=== PATIENT | female | born 1955 | race African-American/Black ===

== ENCOUNTER 2017-08-24 15:04 | Emergency (ER) | payer OTHER ==
[2017-08-24 16:16] LABS: Bilirubin,Urine NEG (Negative); Blood,Urine NEG (Negative); Ketones,Urine NEG (Negative); Leukocyte Esterase,Urine NEG (Negative); Nitrite,Urine NEG (Negative); Protein,Urine <15 mg/dL mg/dL (Negative); Urobilinogen,Urine < 2.0 mg/dL (<2.0); WBC,Urine < 1.0 /HPF (0.0-6.0)
[2017-08-24 19:19] LABS: Basophils % (Auto) 0.3 % (0.0-1.8); Eosinophils % (Auto) 2.1 % (0.0-4.3); Hematocrit 44.5 % (30.3-42.9); Hemoglobin 14.6 gm/dl (10.1-14.3); Mean Corpuscular HGB Conc 33 % (30-34); Mean Corpuscular Hemoglobin 28 pg (28-32); Mean Corpuscular Volume 85 fl (79-97); Platelet Count 112 K/mm3 (140-440); Red Blood Count 5.22 M/mm3 (3.65-5.03); Red Cell Distribution Width 14.8 % (13.2-15.2); White Blood Count 5.9 K/mm3 (4.5-11.0)
[2017-08-24 19:27] VITALS: BP 126/72
[2017-08-24 19:28] LABS: Alanine Aminotransferase 37 units/L (7-56); Albumin/Globulin Ratio 1.5 %; Alkaline Phosphatase 78 units/L (35-129); Anion Gap 21 mmol/L; BUN/Creatinine Ratio 28; Blood Urea Nitrogen 11 mg/dL (7-17); Carbon Dioxide 26 mmol/L (22-30); Chloride 101.3 mmol/L (98-107); Glucose 90 mg/dL (65-100); Potassium 4.5 mmol/L (3.6-5.0); Sodium 144 mmol/L (137-145); Total Protein 8.3 g/dL (6.3-8.2)
--- NOTE | 2017-08-24 20:33 | Emergency Department Report ---
ED Female HPI - General Chief complaint: Urogenital-Female Stated complaint: FOREIGN BODY VAGINAL AREA Time Seen by Provider: 08/24/17 17:43 Source: patient Mode of arrival: Ambulatory Limitations: No Limitations - History of Present Illness Initial comments: Patient with 2 weeks of vaginal protrusion that is reducible by patient. She had a normal PAP with her doctor 3 months ago. She has had 3 kids vaginally. Upon further questioning, she had the same problem several years ago but it resolved. No fevers. Also reports history of hemorrhoids which have been reducible. MD Complaint: other (Patient with protruding vagina.) -: Sudden, week(s) (2) Location: perineum Radiation: non-radiating Severity: moderate Severity scale (0 -10): 5 Quality: other (abnormal bulging sensation. Pain with hemorrhoids.) Consistency: intermittent Improves with: movement, other (self-reduction) Worsens with: movement Are you Now?: No - Related Data Home Medications Medication Instructions Recorded Confirmed Last Taken AtorvaSTATin 20 mg PO DAILY 02/11/16 02/11/16 02/04/16 Bisoprolol Fumarate 1 tab PO DAILY 02/11/16 02/11/16 02/04/16 Clopidogrel 75 mg PO DAILY 02/11/16 02/11/16 02/04/16 Metformin HCl 1,000 mg PO BID 02/11/16 02/11/16 02/04/16 Previous Rx's Medication Instructions Recorded Last Taken Type Hydrocort/Pramoxine [Proctofoam-Hc] 10 gm ID DAILY #3 can 08/24/17 Unknown Rx Allergies Allergy/AdvReac Type Severity Reaction Status Date / Time Fish Containing Products Allergy Mild Itching Verified 02/11/16 08:02 fish oil Allergy Itching Verified 02/11/16 08:02 ED Review of Systems ROS: Stated complaint: FOREIGN BODY VAGINAL AREA Other details as noted in HPI Constitutional: denies: chills, fever Eyes: denies: eye pain, eye discharge, vision change ENT: denies: ear pain, throat pain Respiratory: denies: cough, shortness of breath, wheezing Cardiovascular: denies: chest pain, palpitations Endocrine: no symptoms reported Gastrointestinal: denies: abdominal pain, nausea, diarrhea Genitourinary: other (bulge from vagina.). denies: urgency, dysuria, discharge Musculoskeletal: denies: back pain, joint swelling, arthralgia Skin: denies: rash, lesions Neurological: denies: headache, weakness, paresthesias Psychiatric: denies: anxiety, depression Hematological/Lymphatic: denies: easy bleeding, easy bruising ED Past Medical Hx - Past Medical History Previous Medical History?: Yes Hx Hypertension: Yes Hx Diabetes: Yes Additional medical history: Hepatitis B, High cholesterol, Hemorrhoids - Surgical History Past Surgical History?: Yes Additional Surgical History: eye lid surgery, Cataract surgeyr - Social History Smoking Status: Never Smoker Substance Use Type: Prescribed - Medications Home Medications: Home Medications Medication Instructions Recorded Confirmed Last Taken Type AtorvaSTATin 20 mg PO DAILY 02/11/16 02/11/16 02/04/16 History Bisoprolol Fumarate 1 tab PO DAILY 02/11/16 02/11/16 02/04/16 History Clopidogrel 75 mg PO DAILY 02/11/16 02/11/16 02/04/16 History Metformin HCl 1,000 mg PO BID 02/11/16 02/11/16 02/04/16 History Hydrocort/Pramoxine [Proctofoam-Hc] 10 gm ID DAILY #3 can 08/24/17 Unknown Rx ED Physical Exam - General Limitations: No Limitations General appearance: alert, in no apparent distress - Head Head exam: Present: atraumatic, normocephalic - Eye Eye exam: Present: normal appearance - ENT ENT exam: Present: mucous membranes moist - Neck Neck exam: Present: normal inspection - Respiratory Respiratory exam: Present: normal lung sounds bilaterally. Absent: respiratory distress - Cardiovascular Cardiovascular Exam: Present: regular rate, normal rhythm. Absent: systolic murmur, diastolic murmur, rubs, gallop - GI/Abdominal GI/Abdominal exam: Present: soft, normal bowel sounds - Rectal Rectal exam: Present: normal inspection, normal rectal tone, hemorrhoids (small and none that required reduction.) - External exam: Present: normal external exam, lesions (escoriation between rectum and posterior introitus. no blisters.) Speculum exam: Present: normal speculum exam, other (No lacerations, no discharge, did have protruding vagina but fully reducible.) - Extremities Exam Extremities exam: Present: normal inspection - Back Exam Back exam: Present: normal inspection - Neurological Exam Neurological exam: Present: alert, oriented X3 - Psychiatric Psychiatric exam: Present: normal affect, normal mood - Skin Skin exam: Present: warm, dry, intact, normal color. Absent: rash ED Course Vital Signs 08/24/17 08/24/17 08/24/17 15:20 16:45 16:49 Temperature 98 F 98.3 F Pulse Rate 111 H 68 Respiratory 20 18 Rate Blood Pressure 146/88 148/88 O2 Sat by Pulse 96 97 Oximetry 08/24/17 08/24/17 08/24/17 17:00 17:16 17:30 Temperature Pulse Rate Respiratory Rate Blood Pressure 140/85 140/85 140/85 O2 Sat by Pulse 97 97 Oximetry 08/24/17 08/24/17 08/24/17 17:46 18:00 18:20 Temperature Pulse Rate Respiratory Rate Blood Pressure 140/85 140/85 143/82 O2 Sat by Pulse 98 97 98 Oximetry 08/24/17 08/24/17 08/24/17 18:30 18:46 19:00 Temperature Pulse Rate Respiratory Rate Blood Pressure 143/82 143/82 143/82 O2 Sat by Pulse 97 98 97 Oximetry 08/24/17 19:16 Temperature Pulse Rate Respiratory Rate Blood Pressure 126/72 O2 Sat by Pulse 97 Oximetry ED Medical Decision Making - Lab Data Result diagrams: 08/24/17 18:37 08/24/17 18:37 unremarkable labs. - Medical Decision Making Patient with vaginal prolapse, likely uterus. Also has some old hemorrhoids. She will need follow up with [facility] and will go back to hers. Reassurance. Daughter acted as lining setter for [place]. She will do fiber and hydration for hemorrhoids. Will give protofoam. for hemorrhoids. Critical care attestation.: If time is entered above; I have spent that time in minutes in the direct care of this critically ill patient, excluding procedure time. ED Disposition Clinical Impression: Vaginal prolapse, Hemorrhoids, external Disposition: DC-01 TO HOME OR SELFCARE Is pt being admited?: No Does the pt Need Aspirin: No Condition: Good Instructions: Hemorrhoids (ED) Additional Instructions: May use protofoam for hemorrhoid symptoms. Follow up with [facility] for vaginal prolapse. Prescriptions: Hydrocort/Pramoxine [Proctofoam-Hc] 10 gm ID DAILY #3 can Referrals: [facility] [Provider Group] - 3-5 Days Time of Disposition: 20:44
== END 2017-08-24 20:57 | disposition home or self-care (01) ==
LOC: ED 15:04
DX: N81.10 Cystocele, unspecified (principal); K64.4 Residual hemorrhoidal skin tags; I10 Essential (primary) hypertension; E11.9 Type 2 diabetes mellitus without complications; E78.00 Pure hypercholesterolemia, unspecified; Z86.19 Personal history of other infectious and parasitic diseases; Z91.013 Allergy to seafood
CPT/HCPCS: 36415; 80053; 81001; 85025; 99283

== ENCOUNTER 2018-04-29 16:20 | Emergency (ER) | payer OTHER ==
--- NOTE | 2018-04-29 21:52 | Emergency Department Report ---
ED Extremity Problem HPI - General Chief complaint: Extremity Problem,Nontraumatic Stated complaint: RIGHT KNEE PAIN Time Seen by Provider: 04/29/18 21:47 Source: patient Mode of arrival: Wheelchair Limitations: No Limitations - History of Present Illness MD Complaint: extremity pain, joint paint -: Gradual Location: right, knee History of Same: No -: Yes arthralgia Radiation: none Severity scale (0 -10): 6 Quality: aching, sharp Consistency: constant Improves with: nothing Worsens with: nothing Associated Symptoms: denies other symptoms - Related Data Home Medications Medication Instructions Recorded Confirmed Last Taken AtorvaSTATin 20 mg PO DAILY 02/11/16 02/11/16 02/04/16 Bisoprolol Fumarate 1 tab PO DAILY 02/11/16 02/11/16 02/04/16 Clopidogrel 75 mg PO DAILY 02/11/16 02/11/16 02/04/16 Metformin HCl 1,000 mg PO BID 02/11/16 02/11/16 02/04/16 Previous Rx's Medication Instructions Recorded Last Taken Type Hydrocort/Pramoxine [Proctofoam-Hc] 10 gm [place] DAILY #3 can 08/24/17 Unknown Rx Meloxicam 7.5 mg PO Q8H PRN #20 tablet 04/30/18 Unknown Rx Telmisartan 40 mg PO DAILY #30 tablet 04/30/18 Unknown Rx Allergies Allergy/AdvReac Type Severity Reaction Status Date / Time Fish Containing Products Allergy Mild Itching Verified 02/11/16 08:02 fish oil Allergy Itching Verified 02/11/16 08:02 ED Review of Systems ROS: Stated complaint: RIGHT KNEE PAIN Other details as noted in HPI Comment: All other systems reviewed and negative Constitutional: denies: chills, fever Eyes: denies: eye pain, eye discharge ENT: denies: ear pain Respiratory: denies: cough, shortness of breath Cardiovascular: denies: chest pain, palpitations, dyspnea on exertion Endocrine: no symptoms reported Gastrointestinal: denies: abdominal pain, nausea, vomiting, diarrhea Genitourinary: denies: urgency, dysuria Musculoskeletal: arthralgia. denies: back pain, joint swelling Skin: denies: rash, lesions Neurological: denies: headache, weakness, numbness, paresthesias Psychiatric: denies: anxiety, depression Hematological/Lymphatic: denies: easy bleeding, easy bruising ED Past Medical Hx - Past Medical History Hx Hypertension: Yes Hx Diabetes: Yes Additional medical history: Hepatitis B, High cholesterol, Hemorrhoids - Surgical History Past Surgical History?: Yes Additional Surgical History: eye lid surgery, Cataract surgeyr - Social History Smoking Status: Never Smoker Substance Use Type: None - Medications Home Medications: Home Medications Medication Instructions Recorded Confirmed Last Taken Type AtorvaSTATin 20 mg PO DAILY 02/11/16 02/11/16 02/04/16 History Bisoprolol Fumarate 1 tab PO DAILY 02/11/16 02/11/16 02/04/16 History Clopidogrel 75 mg PO DAILY 02/11/16 02/11/16 02/04/16 History Metformin HCl 1,000 mg PO BID 02/11/16 02/11/16 02/04/16 History Hydrocort/Pramoxine [Proctofoam-Hc] 10 gm [place] DAILY #3 can 08/24/17 Unknown Rx Meloxicam 7.5 mg PO Q8H PRN #20 tablet 04/30/18 Unknown Rx Telmisartan 40 mg PO DAILY #30 tablet 04/30/18 Unknown Rx ED Physical Exam - General Limitations: No Limitations General appearance: alert, in no apparent distress - Head Head exam: Present: atraumatic, normocephalic, normal inspection - Eye Eye exam: Present: normal appearance, PERRL, EOMI Pupils: Present: normal accommodation - ENT ENT exam: Present: normal exam, normal orophraynx, mucous membranes moist - Neck Neck exam: Present: normal inspection, full ROM. Absent: tenderness - Respiratory Respiratory exam: Present: normal lung sounds bilaterally. Absent: respiratory distress, wheezes, rales, rhonchi, stridor - Cardiovascular Cardiovascular Exam: Present: regular rate, normal rhythm, normal heart sounds - GI/Abdominal GI/Abdominal exam: Present: soft, normal bowel sounds. Absent: distended, tenderness, guarding, rebound, rigid - Extremities Exam Extremities exam: Present: normal inspection, full ROM, tenderness (Right Knee ) , normal capillary refill. Absent: pedal edema, joint swelling, calf tenderness - Back Exam Back exam: Present: normal inspection, full ROM. Absent: tenderness - Neurological Exam Neurological exam: Present: alert, oriented X3, CN II-XII intact - Psychiatric Psychiatric exam: Present: normal affect, normal mood - Skin Skin exam: Present: warm, dry, intact, normal color. Absent: rash ED Course Vital Signs 04/29/18 04/29/18 04/29/18 17:01 21:59 23:48 Temperature 98.3 F 97.9 F Pulse Rate 94 H 90 77 Respiratory 16 18 Rate Blood Pressure 164/81 156/81 Blood Pressure 160/72 [160/72] O2 Sat by Pulse 96 99 Oximetry ED Medical Decision Making - Lab Data Result diagrams: 04/29/18 22:24 04/29/18 22:24 - Radiology Data Radiology results: report reviewed, image reviewed - Medical Decision Making Right Knee pain Critical care attestation.: If time is entered above; I have spent that time in minutes in the direct care of this critically ill patient, excluding procedure time. ED Disposition Clinical Impression: Osteoarthritis Qualifiers: Osteoarthritis location: knee Osteoarthritis type: primary Laterality: right Qualified Code(s): M17.11 - Unilateral primary osteoarthritis, right knee Hypertension Qualifiers: Hypertension type: essential hypertension Qualified Code(s): I10 - Essential ( primary) hypertension Disposition: TO HOME OR SELFCARE Is pt being admited?: No Does the pt Need Aspirin: No Condition: Stable Instructions: Osteoarthritis (ED), Hypertension (ED) Additional Instructions: Please follow up with your primary doctor on Wednesday morning. Wrist and to the emergency room if condition worsens. Prescriptions: Meloxicam 7.5 mg PO Q8H PRN #20 tablet PRN Reason: pain Telmisartan 40 mg PO DAILY #30 tablet Referrals: PRIMARY CARE, [Primary Care Provider] - 3-5 Days Time of Disposition: 00:18
[2018-04-29] MEDS ORDERED: SUBLIMAZE IV ONE (22:14)
[2018-04-29] MEDS ORDERED: ZOFRAN IV ONE (22:14)
[2018-04-29] MEDS ORDERED: CATAPRES PO ONE (22:16)
[2018-04-29 23:17] LABS: Basophils % (Auto) 0.3 % (0.0-1.8); Eosinophils # (Auto) 0.2 K/mm3 (0.0-0.4); Eosinophils % (Auto) 2.7 % (0.0-4.3); Hematocrit 40.6 % (30.3-42.9); Lymphocytes # (Auto) 3.5 K/mm3 (1.2-5.4); Lymphocytes % (Auto) 47.3 % (13.4-35.0); Mean Corpuscular HGB Conc 34 % (30-34); Mean Corpuscular Hemoglobin 28 pg (28-32); Mean Corpuscular Volume 82 fl (79-97); Monocytes # (Auto) 0.5 K/mm3 (0.0-0.8); Monocytes % (Auto) 6.6 % (0.0-7.3); Platelet Count 112 K/mm3 (140-440); Red Blood Count 4.96 M/mm3 (3.65-5.03); Red Cell Distribution Width 15.2 % (13.2-15.2)
[2018-04-29 23:26] LABS: INR 1.05 (0.87-1.13); Partial Thromboplastin Time 30.9 Sec. (24.2-36.6)
--- NOTE | 2018-04-29 23:29 | XRay Report ---
FINAL REPORT PROCEDURE: XR KNEE 3V RT TECHNIQUE: RIGHT knee radiographs, AP, lateral and sunrise views. CPT 98262 HISTORY: Lower Extremity Injury COMPARISON: No prior studies are available for comparison. FINDINGS: Fracture (s) and/or Dislocation(s): None . Alignment: Normal . Joint space(s): Normal . Soft tissues: Normal . Bone mineralization: Mild degree osteophyte formation is noted.. Foreign bodies: None . IMPRESSION: Mild degree osteoarthritis..
[2018-04-29 23:31] LABS: Alanine Aminotransferase 27 units/L (7-56); Albumin 4.8 g/dL (3.9-5); BUN/Creatinine Ratio 43; Blood Urea Nitrogen 17 mg/dL (7-17); Calcium 9.8 mg/dL (8.4-10.2); Hemolysis Index 5
[2018-04-29 23:37] LABS: Erythrocyte Sedimentation Rate 7 mm/Hr (0-20)
[2018-04-30 00:32] LABS: Bacteria,Urine 2+ /HPF (Negative); Bilirubin,Urine NEG (Negative); Blood,Urine NEG (Negative); Color,Urine Amber (Yellow); Mucus,Urine 3+ /HPF; Protein,Urine <15 mg/dL mg/dL (Negative); Urobilinogen,Urine < 2.0 mg/dL (<2.0)
[2018-04-30 00:35] LABS: WBC,Urine > 182.0 /HPF (0.0-6.0)
[2018-04-30 01:23] VITALS: BP 122/64
--- NOTE | 2018-05-04 17:45 | Vascular Lab Report ---
Right Lower Extremity Venous Duplex Study: Reason for Exam: Pain and swelling of the right lower extremity. Comments on the Right: All veins visualized are freely compressible without evidence of internal echogenicity. Flow is spontaneous and phasic throughout. No evidence of acute or chronic thrombus is seen in any of the vessels visualized. A soft tissue change in the right knee area is consistent with a Lang's cyst. Comments on the Left: A limited duplex study was done of the proximal veins of the left lower extremity. All veins visualized are freely compressible without evidence of internal echogenicity. Flow is spontaneous and phasic throughout. No evidence of acute or chronic thrombus is seen in any of the vessels visualized. Impression: No evidence of acute or chronic deep venous thrombosis in the right lower extremity. A soft tissue change in the right knee area is consistent with a Lang's cyst.
== END 2018-04-30 01:23 | disposition home or self-care (01) ==
LOC: ED 16:20
DX: M17.11 Unilateral primary osteoarthritis, right knee (principal); I10 Essential (primary) hypertension; E11.9 Type 2 diabetes mellitus without complications; E78.00 Pure hypercholesterolemia, unspecified; Z91.013 Allergy to seafood
CPT/HCPCS: 36415; 73562; 80053; 81001; 85025; 85610; 85652; 85730; 86140; 93971; 96374; 96375; 99285; J2405; J3010

== ENCOUNTER 2019-05-14 00:20 | Observation (INO) | payer OTHER ==
[2019-05-14 00:58] LABS: Basophils % (Auto) 0.1 % (0.0-1.8); Eosinophils # (Auto) 0.1 K/mm3 (0.0-0.4); Eosinophils % (Auto) 2.1 % (0.0-4.3); Hematocrit 41.8 % (30.3-42.9); Lymphocytes # (Auto) 3.3 K/mm3 (1.2-5.4); Lymphocytes % (Auto) 50.5 % (13.4-35.0); Mean Corpuscular HGB Conc 34 % (30-34); Mean Corpuscular Volume 85 fl (79-97); Monocytes # (Auto) 0.5 K/mm3 (0.0-0.8); Monocytes % (Auto) 7.5 % (0.0-7.3); Platelet Count 105 K/mm3 (140-440); Red Blood Count 4.94 M/mm3 (3.65-5.03); Red Cell Distribution Width 14.4 % (13.2-15.2)
[2019-05-14 01:20] LABS: BUN/Creatinine Ratio 30; Blood Urea Nitrogen 15 mg/dL (7-17); Calcium 9.7 mg/dL (8.4-10.2); Hemolysis Index 14
--- NOTE | 2019-05-14 01:57 | XRay Report ---
CHEST 1 VIEW 05/14/2019 1:26 AM INDICATION / CLINICAL INFORMATION: Chest Pain. COMPARISON: None available. FINDINGS: SUPPORT DEVICES: None. HEART / MEDIASTINUM: No significant abnormality. LUNGS / PLEURA: No significant pulmonary or pleural abnormality. No pneumothorax. ADDITIONAL FINDINGS: Mild scoliosis of lumbar spine with convexity towards right centered at L1 IMPRESSION: 1. No acute findings. Signer Name: Patrick Oquendo MD Signed: 05/14/2019 1:52 AM Workstation Name: [employer]
[2019-05-14] MEDS ORDERED: ASPIRIN PO ONE (02:31)
[2019-05-14] MEDS ORDERED: NITROSTAT SL PRN (02:31)
--- NOTE | 2019-05-14 03:26 | Emergency Department Report ---
ED Chest Pain HPI - General Chief Complaint: Chest Pain Stated Complaint: CHEST PAIN/FACIAL TINGLING Time Seen by Provider: 05/14/19 02:24 Source: patient Mode of arrival: Ambulatory Limitations: No Limitations - History of Present Illness Initial Comments: Patient is a 63-year-old [place] female with past medical history of high blood pressure diabetes and hyperlipidemia who is presenting with left-sided chest pain. Patient states that there are also some some nausea with 2 episodes of vomiting. Patient states is a heavy sensation that is worse with exertion but is not left for the past 2-3 days. Constant pain also feels as though her heart is beating much harder than normal. Patient states there is some radiation to the neck and jaw. Patient denies shortness of breath diaphoresis. Patient's has not seen a equipment maintenance engineer in 2-3 years. Severity scale (0 -10): 5 - Related Data Home Medications Medication Instructions Recorded Confirmed Last Taken AtorvaSTATin 20 mg PO DAILY 02/11/16 02/11/16 02/04/16 Bisoprolol Fumarate 1 tab PO DAILY 02/11/16 02/11/16 02/04/16 Clopidogrel 75 mg PO DAILY 02/11/16 02/11/16 02/04/16 Metformin HCl 1,000 mg PO BID 02/11/16 02/11/16 02/04/16 Previous Rx's Medication Instructions Recorded Last Taken Type Hydrocort/Pramoxine [Proctofoam-Hc] 10 gm [place] DAILY #3 can 08/24/17 Unknown Rx Meloxicam 7.5 mg PO Q8H PRN #20 tablet 04/30/18 Unknown Rx Telmisartan 40 mg PO DAILY #30 tablet 04/30/18 Unknown Rx Allergies Allergy/AdvReac Type Severity Reaction Status Date / Time No Known Allergies Allergy Unverified 05/14/19 00:35 Heart Score - HEART Score History: Moderately suspicious EKG: Normal Age: 45-65 Risk factors: > 3 risk factors or hx of atherosclerotic disease Troponin: < normal limit HEART Score: 4 ED Review of Systems ROS: Stated complaint: CHEST PAIN/FACIAL TINGLING Other details as noted in HPI Comment: All other systems reviewed and negative ED Past Medical Hx - Past Medical History Previous Medical History?: Yes Hx Hypertension: Yes Hx Diabetes: Yes Hx Liver Disease: Yes (Hepatitis B) Additional medical history: Hepatitis B, High cholesterol, Hemorrhoids - Surgical History Past Surgical History?: Yes Additional Surgical History: eye lid surgery, Cataract surgeyr - Social History Smoking Status: Never Smoker Substance Use Type: None - Medications Home Medications: Home Medications Medication Instructions Recorded Confirmed Last Taken Type AtorvaSTATin 20 mg PO DAILY 02/11/16 02/11/16 02/04/16 History Bisoprolol Fumarate 1 tab PO DAILY 02/11/16 02/11/16 02/04/16 History Clopidogrel 75 mg PO DAILY 02/11/16 02/11/16 02/04/16 History Metformin HCl 1,000 mg PO BID 02/11/16 02/11/16 02/04/16 History Hydrocort/Pramoxine [Proctofoam-Hc] 10 gm [place] DAILY #3 can 08/24/17 Unknown Rx Meloxicam 7.5 mg PO Q8H PRN #20 tablet 04/30/18 Unknown Rx Telmisartan 40 mg PO DAILY #30 tablet 04/30/18 Unknown Rx ED Physical Exam - General Limitations: No Limitations General appearance: alert, in no apparent distress - Head Head exam: Present: atraumatic, normocephalic - Eye Eye exam: Present: normal appearance - ENT ENT exam: Present: mucous membranes moist - Neck Neck exam: Present: normal inspection - Respiratory Respiratory exam: Present: normal lung sounds bilaterally. Absent: respiratory distress, wheezes, rales, rhonchi - Cardiovascular Cardiovascular Exam: Present: regular rate, normal rhythm, normal heart sounds. Absent: systolic murmur, diastolic murmur, rubs, gallop - GI/Abdominal GI/Abdominal exam: Present: soft, normal bowel sounds. Absent: distended, tenderness, guarding, rebound - Extremities Exam Extremities exam: Present: normal inspection - Back Exam Back exam: Present: normal inspection - Neurological Exam Neurological exam: Present: alert, oriented X3 - Psychiatric Psychiatric exam: Present: normal affect, normal mood - Skin Skin exam: Present: warm, dry, intact, normal color. Absent: rash ED Course Vital Signs 05/14/19 05/14/19 00:37 02:30 Temperature 98.2 F 98 F Pulse Rate 102 H 92 H Respiratory 20 14 Rate Blood Pressure 143/87 Blood Pressure 162/81 [Right] O2 Sat by Pulse 97 98 Oximetry LAURENCE score - Laurence Score Age > 65: (0) No Aspirin use within the Past 7 Days: (0) No 3 or more CAD Risk Factors: (1) Yes 2 or more Angina events in past 24 hrs: (1) Yes Known CAD with more than 50% Stenosis: (0) No Elevated Cardiac Markers: (0) No ST Deviation Greater than 0.5mm: (0) No LAURENCE Score: 2 ED Medical Decision Making - Lab Data Result diagrams: 05/14/19 00:43 05/14/19 00:43 Lab Results 05/14/19 05/14/19 Range/Units 00:43 00:43 WBC 6.5 (4.5-11.0) K/mm3 RBC 4.94 (3.65-5.03) M/mm3 Hgb 14.0 (10.1-14.3) gm/dl Hct 41.8 (30.3-42.9) % MCV 85 (79-97) fl MCH 28 (28-32) pg MCHC 34 (30-34) % RDW 14.4 (13.2-15.2) % Plt Count 105 L (140-440) K/mm3 Lymph % (Auto) 50.5 H (13.4-35.0) % [place] % (Auto) 7.5 H (0.0-7.3) % Eos % (Auto) 2.1 (0.0-4.3) % Baso % (Auto) 0.1 (0.0-1.8) % Lymph # 3.3 (1.2-5.4) K/mm3 [place] # 0.5 (0.0-0.8) K/mm3 Eos # 0.1 (0.0-0.4) K/mm3 Baso # 0.0 (0.0-0.1) K/mm3 Seg Neutrophils % 39.8 L (40.0-70.0) % Seg Neutrophils # 2.6 (1.8-7.7) K/mm3 Sodium 140 (137-145) mmol/L Potassium 3.8 (3.6-5.0) mmol/L Chloride 100.9 (98-107) mmol/L Carbon Dioxide 25 (22-30) mmol/L Anion Gap 18 mmol/L BUN 15 (7-17) mg/dL Creatinine 0.5 L (0.7-1.2) mg/dL Estimated GFR > 60 ml/min BUN/Creatinine Ratio 30 % Glucose 114 H (65-100) mg/dL Calcium 9.7 (8.4-10.2) mg/dL Troponin T < 0.010 (0.00-0.029) ng/mL - EKG Data -: EKG Interpreted by Me EKG shows normal: sinus rhythm, axis, intervals, QRS complexes, ST-T waves Rate: normal - EKG Data Interpretation: normal EKG - Radiology Data Radiology results: report reviewed (chest x-ray is within normal limits) - Medical Decision Making The patient is a 63-year-old [place] female who with chest discomfort. Patient has a hard score of 4 and doesn't make criteria for observation. Patient be admitted at this time. Critical Care Time: Yes Critical care attestation.: If time is entered above; I have spent that time in minutes in the direct care of this critically ill patient, excluding procedure time. ED Disposition Clinical Impression: Chest pain Qualifiers: Chest pain type: unspecified Qualified Code(s): R07.9 - Chest pain, unspecified Disposition: DC-01 TO HOME OR SELFCARE Is pt being admited?: Yes Does the pt Need Aspirin: No Condition: Stable Instructions: Chest Pain (ED) Time of Disposition: 03:26
[2019-05-14] MEDS ORDERED: TYLENOL PO PRN (03:47)
[2019-05-14] MEDS ORDERED: MORPHINE IV PRN (03:47)
[2019-05-14] MEDS ORDERED: D50W (25GM) Syringe IV PRN (03:47)
[2019-05-14] MEDS ORDERED: SODIUM CHLORIDE FLUSH SYRINGE 10 ML IV PRN ×2 (03:47)
[2019-05-14] MEDS ORDERED: ZOFRAN IV PRN (03:47)
[2019-05-14] MEDS ORDERED: PERCOCET 5/325 PO PRN (03:47)
[2019-05-14] MEDS ORDERED: APRESOLINE IV PRN (03:56)
--- NOTE | 2019-05-14 04:04 | History and Physical Report ---
History of Present Illness Date of examination: 05/14/19 Date of admission: 05/14/2019 Chief complaint: chest pain History of present illness: 63-year-old [place] speaking patient female with history of hypertension, DM 2, HLD, hep B, hemorrhoids who presents [facility] with c/o of left sided chest pain with radiation to neck. Pt's family is present at bedside and she has requested that they translate. Pt states that around 6pm yesterday she started having chest pain with radiation to neck accompanied by nausea and emesis x2. She denies diaphoresis. She describes her pain as pressure and rates it 7/10. She also states that she feels like her heart is beating faster/ harder than usual. According to pt's son approximately 4-5 years ago pt c/o of fast heart be at and was referred to per diem rn. She had cardiac work-up and was told that the results were normal. She has not been back to the per diem rn since. Pt goes to the [facility] in [place] for all her primary care needs. Denies: dyspnea, diaphoresis, cough, fever, chills, or recent sick contacts Past History Past Medical History: diabetes, hypertension, hyperlipidemia, other (hemorrhoids, hepatitis B) Past Surgical History: Other (eye lid surgery, Cataract surgery) Social history: lives with family. denies: smoking, alcohol abuse Family history: no significant family history Medications and Allergies Allergies Allergy/AdvReac Type Severity Reaction Status Date / Time No Known Allergies Allergy Unverified 05/14/19 00:35 Home Medications Medication Instructions Recorded Confirmed Last Taken Type AtorvaSTATin 20 mg PO DAILY 02/11/16 02/11/16 02/04/16 History Bisoprolol Fumarate 1 tab PO DAILY 02/11/16 02/11/16 02/04/16 History Clopidogrel 75 mg PO DAILY 02/11/16 02/11/16 02/04/16 History Metformin HCl 1,000 mg PO BID 02/11/16 02/11/16 02/04/16 History Hydrocort/Pramoxine [Proctofoam-Hc] 10 gm NV DAILY #3 can 08/24/17 Unknown Rx Meloxicam 7.5 mg PO Q8H PRN #20 tablet 04/30/18 Unknown Rx Telmisartan 40 mg PO DAILY #30 tablet 04/30/18 Unknown Rx Active Meds: Active Medications Acetaminophen (Tylenol) 650 mg PO Q4H PRN PRN Reason: Pain MILD(1-3)/Fever >100.5/[place]O Aspirin (Baby Aspirin) 81 mg PO QDAY [facility] Atorvastatin Calcium (Lipitor) 40 mg PO QHS [facility] Dextrose (D50w (25gm) Syringe) 50 ml IV PRN PRN PRN Reason: Hypoglycemia Docusate Sodium (Colace) 100 mg PO BID [facility] Enoxaparin Sodium (Lovenox) 40 mg SUB-Q QDAY [facility] Hydralazine HCl (Apresoline) 10 mg IV Q4HR PRN PRN Reason: Blood Pressure Insulin Human Lispro (Humalog) 0 unit SUB-Q ACHS [facility]; Protocol Morphine Sulfate (Morphine) 2 mg IV Q4H PRN PRN Reason: Pain, Moderate (4-6) Nitroglycerin (Nitrostat) 0.4 mg SL .Q5MIN PRN PRN Reason: Chest Pain Ondansetron HCl (Zofran) 4 mg IV Q8H PRN PRN Reason: Nausea And Vomiting Oxycodone/Acetaminophen (Percocet 5/325) 1 tab PO Q6H PRN PRN Reason: Pain, Moderate (4-6) Sodium Chloride (Sodium Chloride Flush Syringe 10 Ml) 10 ml IV BID [facility] Sodium Chloride (Sodium Chloride Flush Syringe 10 Ml) 10 ml IV PRN PRN PRN Reason: LINE FLUSH Sodium Chloride (Sodium Chloride Flush Syringe 10 Ml) 10 ml IV PRN PRN PRN Reason: LINE FLUSH Review of Systems All systems: negative Cardiovascular: chest pain Gastrointestinal: nausea, vomiting Neurological: other (dizziness) Exam - Physical Exam Narrative exam: Physical exam General appearance: Present: No acute distress, well-developed, well-nourished alert and oriented 3, [place] speaking older adult female - EENT Eyes: Present: PERRL, EOM intact ENT: hearing intact, normal dentition - Neck Neck: Present: supple, normal ROM - Respiratory Respiratory effort: Non-labored Respiratory: CTA bilaterally - Cardiovascular Heart rate: 98 (bpm) Rhythm: SR Heart Sounds: Present: S1 & S2. Absent: rub, click - Extremities Extremities: no ischemia, pulses intact - Peripheral Assessment Peripheral Pulses: within normal limits - Abdominal General gastrointestinal: soft, non-tender, normal bowel sounds - Integumentary Integumentary: Present: warm, dry - Musculoskeletal Musculoskeletal: Able to move extremities 4 -Neurological Neurological: CN II-XII grossly intact - Psychiatric Psychiatric: cooperative - Constitutional Vitals: Temp Pulse Resp BP Pulse Ox 98 F 92 H 14 162/81 98 05/14/19 02:30 05/14/19 02:30 05/14/19 02:30 05/14/19 02:30 05/14/19 02:30 Results - Labs CBC & Chem 7: 05/14/19 00:43 05/14/19 00:43 Labs: Laboratory Last Values WBC 6.5 K/mm3 (4.5-11.0) 05/14/19 00:43 RBC 4.94 M/mm3 (3.65-5.03) 05/14/19 00:43 Hgb 14.0 gm/dl (10.1-14.3) 05/14/19 00:43 Hct 41.8 % (30.3-42.9) 05/14/19 00:43 MCV 85 fl (79-97) 05/14/19 00:43 MCH 28 pg (28-32) 05/14/19 00:43 MCHC 34 % (30-34) 05/14/19 00:43 RDW 14.4 % (13.2-15.2) 05/14/19 00:43 Plt Count 105 K/mm3 (140-440) L 05/14/19 00:43 Lymph % (Auto) 50.5 % (13.4-35.0) H 05/14/19 00:43 [place] % (Auto) 7.5 % (0.0-7.3) H 05/14/19 00:43 Eos % (Auto) 2.1 % (0.0-4.3) 05/14/19 00:43 Baso % (Auto) 0.1 % (0.0-1.8) 05/14/19 00:43 Lymph # 3.3 K/mm3 (1.2-5.4) 05/14/19 00:43 [place] # 0.5 K/mm3 (0.0-0.8) 05/14/19 00:43 Eos # 0.1 K/mm3 (0.0-0.4) 05/14/19 00:43 Baso # 0.0 K/mm3 (0.0-0.1) 05/14/19 00:43 Seg Neutrophils % 39.8 % (40.0-70.0) L 05/14/19 00:43 Seg Neutrophils # 2.6 K/mm3 (1.8-7.7) 05/14/19 00:43 Sodium 140 mmol/L (137-145) 05/14/19 00:43 Potassium 3.8 mmol/L (3.6-5.0) 05/14/19 00:43 Chloride 100.9 mmol/L (98-107) 05/14/19 00:43 Carbon Dioxide 25 mmol/L (22-30) 05/14/19 00:43 18 mmol/L 05/14/19 00:43 BUN 15 mg/dL (7-17) 05/14/19 00:43 0.5 mg/dL (0.7-1.2) L 05/14/19 00:43 Estimated GFR > 60 ml/min 05/14/19 00:43 30 % 05/14/19 00:43 Glucose 114 mg/dL (65-100) H 05/14/19 00:43 Calcium 9.7 mg/dL (8.4-10.2) 05/14/19 00:43 < 0.010 ng/mL (0.00-0.029) 05/14/19 00:43 - Imaging and Cardiology Imaging and Cardiology: CXR: Findings: LUNGS / PLEURA: No significant pulmonary or pleural abnormality. No pneumothorax. ADDITIONAL FINDINGS: Mild scoliosis of lumbar spine with convexity towards right centered at L1 IMPRESSION: 1. No acute findings. Assessment and Plan Assessment and plan: 63-year-old [place] speaking patient female with history of hypertension, DM 2, HLD, hep B, hemorrhoids who presents [facility] with c/o of left sided chest pain with radiation to neck, nausea and emesis x2. Acute Chest Pain R/O ACS -Initiate chest pain protocol -Continuous telemetry monitoring -Continue supportive care -Pain mgmt -Echo and Lexiscan pending -Troponin negative x 1, will continue to trend -Start ASA and Statin -Lipid panel pending DM 2 -POC BG monitoring -SSI coverage -HbgA1C pending Hypertension -Continue to monitor BP -Resume home antihypertensive meds once med rec has bee completed -IV antihypertensive when necessary DVT PPX -On Lovenox -SCD's Medication Reconciliation pending Advance Directives: No VTE prophylaxis?: Chemical, Mechanical Plan of care discussed with patient/family: Yes
[2019-05-14] MEDS: HumaLOG SUB-Q SCH ×3 (08:26→17:06)
[2019-05-14] MEDS ORDERED: SODIUM CHLORIDE FLUSH SYRINGE 10 ML IV SCH (10:00)
[2019-05-14] MEDS ORDERED: LOVENOX SUB-Q SCH (10:00)
[2019-05-14] MEDS ORDERED: COLACE PO SCH (10:00)
--- NOTE | 2019-05-14 11:09 | Consultation ---
History of Present Illness Consult date: 05/14/19 Requesting physician: ELTON SANTIAGO Consult reason: chest pain History of present illness: Ms. Alegre is a 63 y/o female who presented to [facility] with chest pain. She speaks only [place], so history has been obtained from her son at bedside. The pain began on Wednesday, and is described as left-sided and radiating to her neck and face. She endorses two episodes of vomiting, but denies SOB, diaphoresis and cough. She has a history of hypertension, type 2 diabetes, hyperlipidemia, hepatitis B and hemorrhoids and is unknown to our practice. EKG, CXR and troponins were all negative. An echocardiogram on 05/14/19 found an EF of 55 to 60 percent with no abnormalities. She denies chest pain on exam this morning. Past History Past Medical History: diabetes, hypertension, hyperlipidemia, other (hemorrhoids, hepatitis B) Past Surgical History: Other (eye lid surgery, Cataract surgery) Social history: lives with family. denies: smoking, alcohol abuse Family history: no significant family history Medications and Allergies Allergies Allergy/AdvReac Type Severity Reaction Status Date / Time No Known Allergies Allergy Verified 05/14/19 04:24 Home Medications Medication Instructions Recorded Confirmed Last Taken Type AtorvaSTATin 40 mg PO DAILY 02/11/16 05/14/19 02/04/16 History Metformin HCl 1,000 mg PO BID 02/11/16 05/14/19 02/04/16 History Telmisartan 40 mg PO DAILY #30 tablet 04/30/18 05/14/19 Unknown Rx Aspirin [Aspirin BABY CHEW TAB] 81 mg PO QDAY #30 tab.chew 05/14/19 Unknown Rx Meloxicam 7.5 mg PO DAILY PRN 05/14/19 05/14/19 Unknown History Omeprazole 20 mg PO DAILY 05/14/19 05/14/19 Unknown History Tenofovir Disoproxil Fumarate 300 mg PO QDAY 05/14/19 05/14/19 Unknown History [Viread] Active Meds: Active Medications Acetaminophen (Tylenol) 650 mg PO Q4H PRN PRN Reason: Pain MILD(1-3)/Fever >100.5/[place] Aspirin (Baby Aspirin) 81 mg PO QDAY [facility] Atorvastatin Calcium (Lipitor) 40 mg PO QHS [facility] Dextrose (D50w (25gm) Syringe) 50 ml IV PRN PRN PRN Reason: Hypoglycemia Docusate Sodium (Colace) 100 mg PO BID [facility] Last Admin: 05/14/19 10:25 Dose: 100 mg Documented by: Enoxaparin Sodium (Lovenox) 40 mg SUB-Q QDAY [facility] Last Admin: 05/14/19 10:25 Dose: 40 mg Documented by: Hydralazine HCl (Apresoline) 10 mg IV Q4HR PRN PRN Reason: Blood Pressure Insulin Human Lispro (Humalog) 0 unit SUB-Q ACHS [facility]; Protocol Last Admin: 05/14/19 08:26 Dose: Not Given Documented by: Morphine Sulfate (Morphine) 2 mg IV Q4H PRN PRN Reason: Pain, Moderate (4-6) Nitroglycerin (Nitrostat) 0.4 mg SL .Q5MIN PRN PRN Reason: Chest Pain Ondansetron HCl (Zofran) 4 mg IV Q8H PRN PRN Reason: Nausea And Vomiting Oxycodone/Acetaminophen (Percocet 5/325) 1 tab PO Q6H PRN PRN Reason: Pain, Moderate (4-6) Sodium Chloride (Sodium Chloride Flush Syringe 10 Ml) 10 ml IV BID [facility] Last Admin: 05/14/19 10:25 Dose: 10 ml Documented by: Sodium Chloride (Sodium Chloride Flush Syringe 10 Ml) 10 ml IV PRN PRN PRN Reason: LINE FLUSH Review of Systems All systems: negative Cardiovascular: chest pain Physical Examination Last Vital Signs Temp 98.3 F 05/14/19 07:36 Pulse 74 05/14/19 10:37 Resp 18 05/14/19 10:37 BP 109/55 05/14/19 07:36 Pulse Ox 96 05/14/19 10:37 Female genitourinary: deferred Skin: Positive: Other (circular porras from cupping noted on back ) Results 05/14/19 00:43 05/14/19 00:43 CBC 05/14/19 Range/Units 00:43 WBC 6.5 (4.5-11.0) K/mm3 RBC 4.94 (3.65-5.03) M/mm3 Hgb 14.0 (10.1-14.3) gm/dl Hct 41.8 (30.3-42.9) % Plt Count 105 L (140-440) K/mm3 Lymph # 3.3 (1.2-5.4) K/mm3 [place] # 0.5 (0.0-0.8) K/mm3 Eos # 0.1 (0.0-0.4) K/mm3 Baso # 0.0 (0.0-0.1) K/mm3 Comprehensive Metabolic Panel 05/14/19 Range/Units 00:43 Sodium 140 (137-145) mmol/L Potassium 3.8 (3.6-5.0) mmol/L Chloride 100.9 (98-107) mmol/L Carbon Dioxide 25 (22-30) mmol/L BUN 15 (7-17) mg/dL Creatinine 0.5 L (0.7-1.2) mg/dL Glucose 114 H (65-100) mg/dL Calcium 9.7 (8.4-10.2) mg/dL - Imaging and Cardiology Stress echo: pending Echo: report reviewed (05/14/19: EF 55-60%) EKG interpretations - Telemetry EKG Rhythm: Sinus Rhythm - EKG Sinus rhythms and dysrhythmias: sinus rhythm Assessment and Plan Ms. Alegre is a 63 y/o female with a history of hypertension, diabetes, hepatitis B and hyperlipidemia who presented to [facility] with left-sided, radiating chest pain. EKG, CXR, troponins all unremarkable. Lexiscan stress test scheduled for tomorrow. Further recommendations pending hospital course. Continue current cardiac management for now. The patient has been seen in conjunction with Dr. Denisha Galvin, who agrees with the assessment and plan. - Patient Problems (1) Chest pain Current Visit: Yes Status: Acute Qualifiers: Chest pain type: unspecified Qualified Code(s): R07.9 - Chest pain, unspecified (2) Hypertension Current Visit: Yes Status: Chronic (3) Diabetes mellitus Current Visit: Yes Status: Chronic (4) Hepatitis B Current Visit: Yes Status: Chronic
[2019-05-14 17:03] VITALS: BP 112/59
--- NOTE | 2019-05-14 19:27 | Discharge Summary ---
Providers - Providers Date of Admission: 05/14/19 05:07 Attending physician: ELTON SANTIAGO MD 05/14/19 07:50 Consult to Physician [CONS] Routine Comment: Consulting Provider: PILLO JAIN Physician Instructions: Reason For Exam: chest pain [facility] Condition: Stable Hospital course: advised patient to await for cardiology eval and stress test but they refused. Risk discussed by nursing staff in detail outpatient stress test highly recommended Disposition: [id number] LEFT AGAINST MED ADVICE Exam - Constitutional Vitals: Temp Pulse Resp BP Pulse Ox 98.5 F 83 18 112/59 95 05/14/19 17:01 05/14/19 17:01 05/14/19 17:01 05/14/19 17:01 05/14/19 17:01 Plan Follow up with: PILLO JAIN MD [Staff Physician] - 7 Days CORRYTON LEONEL CONTE MD [Primary Care Provider] - 7 Days Forms: AMA Form Prescriptions: Aspirin [Aspirin BABY CHEW TAB] 81 mg PO QDAY #30 tab.chew
[2019-05-15] MEDS ORDERED: BABY ASPIRIN PO SCH (10:00)
== END 2019-05-14 17:52 | disposition left against medical advice (07) ==
LOC: ED 00:20 → 4A 05:07
PROVIDERS: ADMIT Internal Medicine; ATTEND Internal Medicine
DX: R07.89 Other chest pain (principal); E11.9 Type 2 diabetes mellitus without complications; E78.5 Hyperlipidemia, unspecified; I10 Essential (primary) hypertension
CPT/HCPCS: 36415; 71045; 80048; 82962; 83036; 84484; 85025; 93005; 93010; 93306; 96372; 99284; G0378; J1650